=== PATIENT | female | born 1975 | race Caucasian/White ===

== ENCOUNTER 2016-06-09 12:16 | Emergency (ER) | payer OTHER ==
[~2016-06-09] VITALS: Ht 157.5 cm; Wt 59.0 kg
[2016-06-09] MEDS ORDERED: HYDROCODON-ACE1 EAC5 PO (12:36)
[2016-06-09] MEDS ORDERED: XANAX1 MG PO (12:37)
[2016-06-09] MEDS ORDERED: OXYCODONE HCL15 MG PO (12:37)
[2016-06-09] MEDS ORDERED: ONDANSETRON HCL4 M2 PO (13:57)
[2016-06-09] MEDS ORDERED: ZANAFLEX4 M2 PO (13:57)
[2016-06-09 14:16] VITALS: BP 132/62
== END 2016-06-09 14:18 | disposition home or self-care (01) ==
LOC: ER 12:16
DX: R51 Headache (principal); G93.5 Compression of brain

== ENCOUNTER 2016-08-31 14:29 | Emergency (ER) | payer OTHER ==
[~2016-08-31] VITALS: Ht 160 cm; Wt 64.4 kg
--- NOTE | ~2016-08-31 | EKG ---
[address] [address] [facility] [place] [address] ELECTROCARDIOGRAM REPORT Name: BUCK LONG Room #: DEP JESSICA Norman#: [id number] Admission: 08/31/16 Attend Phys: Discharge: 08/31/16 Date of : 77 Report #: [id number] THIS REPORT FOR: //name// ED Test Date: 2016-08-31 Test Time: 15:28:29 Pat Name: BUCK LONG Department: Room: Gender: F Machine Specialist: VANI : 1975 Requested By: Tommie Abreu Order Number: [id number] MD: Marin Coello Measurements Intervals [place] Rate: 64 P: 41 [place]: 123 QRS: 58 QRSD: 90 T: 54 QT: 380 QTc: 392 Interpretive Statements Sinus rhythm No significant abnormality No previous ECG available for comparison Electronically Signed On 09-01-2016 7:39:49 CDT by Marin Coello [email or web address] <ELECTRONICALLY SIGNED> By: Marin Coello MD, [facility] 09/01/16 0739 1528 1528 Marin Coello MD, FACC /EPI
--- NOTE | ~2016-08-31 | EKG ---
[address] [address] [place] [address] ELECTROCARDIOGRAM REPORT Name: BUCK LONG Room #: DEP JESSICA Norman#: [id number] Admission: 08/31/16 Attend Phys: Discharge: 08/31/16 Date of : 77 Report #: [id number] THIS REPORT FOR: //name// [facility] ED Test Date: 2016-08-31 Test Time: 14:46:47 Pat Name: BUCK LONG Department: Room: Gender: F Cytogenetics Laboratory Manager: Johnna : 1975 Requested By: Tommie Abreu Order Number: [id number] MD: Marin Coello Measurements Intervals [place] Rate: 83 P: 44 AR: 117 QRS: 54 QRSD: 89 T: 47 QT: 369 QTc: 434 Interpretive Statements Sinus rhythm with sinus arrhythmia Early R-wave progression No previous ECG available for comparison Electronically Signed On 09-01-2016 7:41:13 CDT by Marin Coello [email or web address] <ELECTRONICALLY SIGNED> By: Marin Coello MD, [facility] 09/01/16 0741 1446 1446 Marin Coello MD, FACC /EPI
[~2016-08-31 14:29] MED LIST: HYDROCODON-ACE1 EAC5 PO; ONDANSETRON HCL4 M2 PO; OXYCODONE HCL15 MG PO; XANAX1 MG PO; ZANAFLEX4 M2 PO
[2016-08-31] MEDS ORDERED: DEPO-PROVER150 MG/M1 IM (14:36)
[2016-08-31 15:12] LABS: URINE BILIRUBIN NEGATIVE (Negative); URINE BLOOD 1+ (Negative); URINE COLOR YELLOW; URINE GLUCOSE-RANDOM* NEGATIVE (Negative); URINE KETONES NEGATIVE (Negative); URINE LEUKOCYTES-REFLEX NEGATIVE (Negative); URINE PROTEIN (DIPSTICK) NEGATIVE (Negative); URINE SPECIFIC GRAVITY 1.015 (1.003-1.035); URINE UROBILINOGEN 0.2 E.U./dl (0.2-1.0)
[2016-08-31 15:23] LABS: ABSOLUTE NEUTROPHILS 2.9 thou/uL (1.4-8.2); BASOPHILS 0.9 % (0.0-2.0); EOSINOPHILS 10.2 % (0.0-3.0); HEMATOCRIT 35.6 % (37.0-47.0); HEMOGLOBIN 12.5 gm/dL (12.0-15.0); LYMPHOCYTES 32.5 % (24.0-44.0); MCH 31.2 pg (26.0-34.0); MCHC 34.9 g/dL (28.0-37.0); MCV 89.3 fL (80.0-100.0); MONOCYTES 5.3 % (1.0-8.0); PLATELET COUNT 354 thou/uL (150-400); POLYS 51.1 % (36.0-66.0); RBC 3.99 mil/uL (4.20-5.00); RDW 14.2 % (10.5-14.5); WBC 5.7 thou/uL (4.0-11.0)
[2016-08-31 15:24] LABS: MANUAL DIFF NO
[2016-08-31 15:26] LABS: CASTS None Seen /LPF (None Seen); CRYSTALS None Seen /LPF (None Seen); SQUAMOUS >10 Many /LPF (0-3); URINE RBC 0-2 Rare /HPF (0-2); URINE WBC-REFLEX 0-5 Rare /HPF (0-5)
[2016-08-31 15:47] LABS: ANION GAP 9 mmol/L (7-16); BUN 8 mg/dL (7-18); CALCIUM 8.8 mg/dL (8.5-10.1); CHLORIDE 106 mmol/L (98-107); CO2 25 mmol/L (21-32); CREATININE 0.8 mg/dL (0.6-1.0); GLUCOSE 105 mg/dL (74-106); POTASSIUM 3.7 mmol/L (3.5-5.1); SODIUM 140 mmol/L (136-145)
[2016-08-31 15:58] LABS: ALBUMIN 3.7 g/dL (3.4-5.0); ALKALINE PHOSPHATASE 65 U/L (46-116); NT-PRO BRAIN NAT PEPTIDE 136 pg/mL (<300); SGOT 19 U/L (15-37); SGPT 19 U/L (30-65); TOTAL BILIRUBIN 0.2 mg/dL (<0.1-1.0); TOTAL PROTEIN 7.6 g/dL (6.4-8.2); TROPONIN-I < 0.04 ng/mL (<0.04-0.07)
[2016-08-31 17:28] VITALS: BP 132/69
== END 2016-08-31 17:30 | disposition home or self-care (01) ==
LOC: ER 14:29
PROVIDERS: Physician Assistant
DX: N80.9 Endometriosis, unspecified (principal); R07.9 Chest pain, unspecified; Q07.00 Arnold-Chiari syndrome without spina bifida or hydrocephalus; F17.210 Nicotine dependence, cigarettes, uncomplicated; F10.99 Alcohol use, unspecified with unspecified alcohol-induced disorder

== ENCOUNTER 2016-09-11 13:05 | Emergency (ER) | payer OTHER ==
[~2016-09-11] VITALS: Ht 165.1 cm; Wt 64.9 kg
[~2016-09-11 13:05] MED LIST changes: +DEPO-PROVER150 MG/M1 IM
[2016-09-11 13:22] LABS: URINE BILIRUBIN NEGATIVE (Negative); URINE BLOOD NEGATIVE (Negative); URINE COLOR YELLOW; URINE GLUCOSE-RANDOM* NEGATIVE (Negative); URINE KETONES NEGATIVE (Negative); URINE NITRITE NEGATIVE (Negative); URINE PROTEIN (DIPSTICK) TRACE (Negative); URINE SPECIFIC GRAVITY 1.025 (1.003-1.035); URINE UROBILINOGEN 0.2 E.U./dl (0.2-1.0)
[2016-09-11 13:33] LABS: CASTS None Seen /LPF (None Seen); SQUAMOUS >10 Many /LPF (0-3)
[2016-09-11 13:35] LABS: AMORPHOUS URATES Few /LPF (None Seen); BACTERIA 1-9 Few /HPF (None Seen); URINE RBC 0-2 Rare /HPF (0-2); URINE WBC 0-5 Rare /HPF (0-5)
[2016-09-11 13:48] LABS: ABSOLUTE NEUTROPHILS 2.4 thou/uL (1.4-8.2); EOSINOPHILS 9.6 % (0.0-3.0); HEMATOCRIT 37.4 % (37.0-47.0); HEMOGLOBIN 12.6 gm/dL (12.0-15.0); LYMPHOCYTES 38.4 % (24.0-44.0); MCH 29.8 pg (26.0-34.0); MCHC 33.8 g/dL (28.0-37.0); MCV 88.2 fL (80.0-100.0); MONOCYTES 6.3 % (1.0-8.0); PLATELET COUNT 350 thou/uL (150-400); POLYS 43.7 % (36.0-66.0); RBC 4.24 mil/uL (4.20-5.00); RDW 13.8 % (10.5-14.5); WBC 5.5 thou/uL (4.0-11.0)
[2016-09-11 13:53] LABS: MANUAL DIFF NO
[2016-09-11 14:08] LABS: CALCIUM 9.3 mg/dL (8.5-10.1); CREATININE 0.9 mg/dL (0.6-1.0); POTASSIUM 3.9 mmol/L (3.5-5.1)
[2016-09-11 14:12] LABS: DIRECT BILIRUBIN 0.1 mg/dL (<0.1-0.3); TOTAL BILIRUBIN 0.3 mg/dL (<0.1-1.0); TOTAL PROTEIN 7.9 g/dL (6.4-8.2)
[2016-09-11] MEDS ORDERED: NORCO 5-325 TA1 EACH PO (14:34)
[2016-09-11] MEDS ORDERED: PHENERGAN 25 MG25 M1 PO (14:34)
[2016-09-11 15:37] VITALS: BP 122/86
[2016-09-13 19:08] LABS: CHLAMYDIA TRACHOMATIS-PCR Negative (Negative); NEISSERIA GONORRHEA-PCR Negative (Negative)
== END 2016-09-11 15:38 | disposition home or self-care (01) ==
LOC: ER 13:05
PROVIDERS: Emergency Medicine
DX: R10.2 Pelvic and perineal pain (principal); R11.2 Nausea with vomiting, unspecified; G89.29 Other chronic pain; F17.210 Nicotine dependence, cigarettes, uncomplicated; F10.99 Alcohol use, unspecified with unspecified alcohol-induced disorder